=== PATIENT | female | born 1975 | race Caucasian/White ===

== ENCOUNTER 2019-12-02 12:36 | Outpatient (CLI) | payer MEDICARE, MEDICAID, SELFPAY ==
--- NOTE | ~2019-12-02 | US_ITS ---
EXAMINATION: US FNA w image guidance DATE: 12/02/2019 13:40 INDICATION: Nontoxic single thyroid nodule TECHNIQUE: A time-out was performed to verify the patient's name, date of , and procedure to be performed . The procedure and its benefits and risks were discussed with the patient. Risks specifically discus sed included bleeding and infection. The patient understood the risks and agreed to proceed. The neck was prepped and draped in the usual sterile manner. 3 mL 1% lidocaine was used for local anesthesia . 6 passes were made with a 25G needle into the lesion. Appropriate needle location was documented with continuous sonographic guidance. The specimens were passed to the senior cytotechnologist in the room. A sterile bandage was applied. There were no immediate complications. FINDINGS: Grayscale ultrasound images demonstrate 2 predominantly solid isoechoic nodules in the inferior right thyroid, the larger and more cephalad is wider than tall measuring 1.7 x 1.4 x 0.9 cm with a couple punctate intrarenal echogenic foci (TI-RADS 4, moderately suspicious , FNA if >=1.5 cm, annual follow up is >1 cm). The smaller and more caudal is a 1.4 x 1.0 x 1.1 cm solid than wide nodule without echo genic foci, also TI RADS 4. Finally there is a small solid hypoechoic nodule measuring 3 mm in the le ft thyroid. The the larger and more cephalad nodule in the right thyroid was selected for biopsy. Sub sequent images demonstrate the biopsy needle advanced into the nodule. IMPRESSION: 1. Successful ultrasound-guided fine needle aspiration of the largest 1.7 cm TI RADS 4 nodule in the right thyroid. Reviewed, dictated and finalized at location A. IMPRESSION: 1. Successful ultrasound-guided fine needle aspiration of the largest 1.7 cm T I RADS 4 nodule in the right thyroid.
== END 2019-12-02 12:37 | disposition home or self-care (01) ==
LOC: ANHIMG 12:42
PROVIDERS: Visit Provider Otolaryngology
DX: E04.2 Nontoxic multinodular goiter (principal)
CPT/HCPCS: 10005; 88108; 88173; 88305

== ENCOUNTER 2021-10-09 22:39 | Emergency (ER) | payer MEDICARE, MEDICAID, SELFPAY ==
--- NOTE | ~2021-10-09 | XR_ITS ---
EXAMINATION: XR knee LT 3V EXAM DATE: 10/09/2021 23:29 INDICATION: Initial encounter following injury, with pain of the left knee. TECHNIQUE: Three projections of the left knee. There is no prior study for comparison. FINDINGS: No evidence osteochondral defect or joint body in the left knee joint. There are no acute fractures or dislocations identified. There is no subcutaneous gas. There is small joint effusion. There are no radiopaque foreign bodies. IMPRESSION: No acute osseous findings. Reviewed, dictated and finalized at location A. NER IMPRESSION: No acute osseous findings.
[2021-10-09 22:42] VITALS: BP 125/80; PULSE 60; RESP 20; TEMP 37; O2SAT 100
--- NOTE | 2021-10-09 23:25 | ED.LOWEXIN ---
HPI - Extremity Injury (Lower) General Chief Complaint: Extremity Injury, Lower Stated Complaint: left knee pain Time Seen by Provider: 10/09/21 23:04 History of Present Illness HPI Narrative: 46-year-old female presents emergency room status post fall. Patient states that she twisted her left knee while trying to clean up mild off of her driveway. Patient states that she was not ambulatory following the incident. Patient does have a recent history of traumatic injury to the knee. No history of surgical repair. Pain is worse with movement and ambulation. Related Data Home Medications Medication Instructions Recorded Confirmed estradiol 1 mg tablet 1 mg PO DAILY 11/17/19 hydrocodone 10 mg-acetaminophen 1 tablet PO Q8H PRN 11/17/19 325 mg tablet pregabalin 100 mg capsule 100 mg PO BID 11/17/19 Allergies Allergy/AdvReac Type Severity Reaction Status Date / Time ciprofloxacin AdvReac Severe KIDNEY Verified 10/09/21 22:54 FAILURE Review of Systems Review of Systems: CONSTITUTIONAL: Denies fever, chills, or sweats. EYES: Denies visual changes, redness, or discharge. ENT: Denies rhinorrhea, congestion, sore throat, or otalgia. CARDIOVASCULAR: Denies chest pain, palpitations, or edema. RESPIRATORY: Denies cough or dyspnea. GASTROINTESTINAL: Denies abdominal pain, nausea, vomiting, or diarrhea. GENITOURINARY: Denies dysuria or hematuria. SKIN: Denies rash or itching. MUSCULOSKELETAL: Reports right knee pain NEUROLOGIC: Denies headache, numbness, dizziness, or weakness. PSYCHIATRIC: Denies anxiety or depression. PMFSH Past Medical History Medical History Chronic back pain On usp drug therapy Swelling of lymph node Surgical History Surgical History History of partial hysterectomy History of tonsillectomy and adenoidectomy Hx of carpal tunnel repair Status post repair of arteriovenous fistula Family History Family History Mother Diabetes mellitus Sibling Thyroid cancer Grandparent Diabetes mellitus Grandparent Cancer Exam Narrative: GENERAL: Well-appearing, well-nourished, and in no acute distress. HEAD: Normocephalic, atraumatic. EYES: PERRLA and EOMI. ENT: Nares clear, no rhinorrhea or epistaxis. Mucous membranes moist. Oropharynx without tonsillar hypertrophy exudate or other lesions. Bilateral TMs pearly nicholson nonbulging NECK: Supple. No adenopathy or masses. No carotid bruits or JVD CHEST: Clear to auscultation. No respiratory distress. No wheezes rales or rhonchi HEART: Regular rate and rhythm. No murmur heard. Normal peripheral pulses. ABDOMEN: Soft, nontender, nondistended, normal active bowel sounds. EXTREMITIES: Right knee: medial and lateral patellar +TTP; +STS, pain valgus and varus pressure; Negative anterior/posterior drawer tests; distal pulses present SKIN: Warm, dry, no rash. NEURO: No focal deficits. Alert and oriented x3. PSYCH: Normal mood and affect. Course Course Emergency Course: Plain films of the left knee demonstrated no acute fracture. Vital Signs Vital signs: Vital Signs Temperature 37.0 C 10/09/21 22:42 Pulse Rate 60 10/09/21 22:42 Respiratory Rate 20 10/09/21 22:42 Blood Pressure 125/80 10/09/21 22:42 Pulse Oximetry 100 10/09/21 22:42 Temperature 37.0 C 10/09/21 22:42 Pulse Rate 60 10/09/21 22:42 Respiratory Rate 20 10/09/21 22:42 Blood Pressure 125/80 10/09/21 22:42 Pulse Oximetry 100 10/09/21 22:42 MDM - Extremity Injury (Lower) MDM Narrative Medical decision making narrative: 46-year-old female presented to the emergency room status post fall, injuring her left knee, patient states the mechanism of injury was a twist. Imaging demonstrated no acute abnormalities. Suspect a possible ligament injury versus meniscus injury. Medical Records Att
[2021-10-10 00:28] VITALS: BP 132/78; PULSE 65; RESP 18; TEMP 36.8; O2SAT 99
== END 2021-10-10 00:28 | disposition home or self-care (01) ==
PROVIDERS: Emergency Provider Nurse Practitioner Family; PCP Nurse Practitioner Family
DX: M23.92 Unspecified internal derangement of left knee (principal); S89.92XA Unspecified injury of left lower leg, initial encounter; W18.30XA Fall on same level, unspecified, initial encounter; X50.9XXA Other and unspecified overexertion or strenuous movements or postures, initial encounter
CPT/HCPCS: 73562; 99283

== ENCOUNTER 2021-11-25 08:00 | Outpatient (CLI) | payer MEDICARE, MEDICAID, SELFPAY ==
--- NOTE | ~2021-11-25 | MR_ITS ---
EXAMINATION: MR knee LT wo con DATE: 11/25/2021 08:59 INDICATION: Left knee pain TECHNIQUE: Magnetic resonance imaging (MRI) of the left knee was performed without intravenous contra st. Sequences included coronal PD-weighted FSE, coronal PD-weighted FS FSE, sagittal T2-weighted FSE , sagittal PD-weighted FS FSE and axial PD weighted fat saturated FSE. COMPARISON: None. FINDINGS: Medial compartment: Medial meniscus is normal. Articular cartilage is normal. Lateral compartment: Radial tear/avulsion at the posterior root lateral meniscus. Articular cartilage is normal. Patellofemoral compartment: Partial-thickness chondral fissuring involving up to 50% the cartilage thickness at the patellar apic al ridge. Partial-thickness chondral ulceration and fissuring along the inferior aspect of the medial trochlea. Ligaments and tendons: Anterior and posterior cruciate ligaments are normal. The medial collateral ligament and fibular [place] ateral ligament complex are normal. Mild patellar tendinopathy. Quadriceps tendon is normal. The visu alized medial and lateral hamstring tendons as well as the iliotibial band are normal. Fluid: Small joint effusion at the suprapatellar pouch. No loose osteochondral bodies identified. Mild subcu taneous edema without discrete bursal fluid collection. Osseous/other: Normal marrow signal. No fracture or pathologic marrow replacing process. IMPRESSION: 1. Radial tear/avulsion at the posterior root of the lateral meniscus. 2. Mild patellofemoral osteoarthritis with small regions of moderate grade chondromalacia. 3. Small left knee joint effusion. Reviewed, dictated and finalized at location B. IMPRESSION: 1. Radial tear/avulsion at the posterior root of the lateral meniscus. 2. Mild patellofemoral osteoarthritis with small regions of moderate grade jennie dromalacia. 3. Small left knee joint effusion.
== END 2021-11-25 08:01 | disposition home or self-care (01) ==
LOC: ANHIMG 08:02
PROVIDERS: PCP Nurse Practitioner Family; Visit Provider Orthopaedic Surgery
DX: M17.12 Unilateral primary osteoarthritis, left knee (principal); M25.462 Effusion, left knee; M94.262 Chondromalacia, left knee
CPT/HCPCS: 73721

== ENCOUNTER 2022-09-29 10:33 | Emergency (ER) | payer MEDICARE, MEDICAID, SELFPAY ==
--- NOTE | ~2022-09-29 | CT_ITS ---
EXAMINATION: CT abdomen pelvis w con INDICATION: Left lower quadrant pain, constipation TECHNIQUE: Computed tomographic images of the abdomen and pelvis were obtained after the administrati on of 100 cc of Omnipaque 350 intravenous contrast. The dose-length product (DLP) was 1209.37 mGy-cm. Automated exposure control and iterative reconstruction technique were employed. COMPARISON: None available FINDINGS: Minimal dependent atelectasis is present in the lung bases. The heart size is normal. The g allbladder is surgically absent. There is mild enlargement of the common bile duct and central intrah epatic ducts which is likely due to post cholecystectomy state. The liver is diffusely low in attenua tion when compared with the spleen, consistent with hepatic steatosis. The spleen, pancreas, and righ t adrenal gland are normal. There is a 1.4 cm soft tissue density mass of the left adrenal gland. The kidneys are unremarkable. No pathologically enlarged abdominal or pelvic lymph nodes are identified. No free intraperitoneal gas or evidence of bowel obstruction. The appendix is normal. There is a fat -containing umbilical hernia. Colonic diverticulosis is present without evidence of diverticulitis. A moderate volume of colonic stool is present. There are bilateral L5 pars defects with grade 1 melvina listhesis of L5 on S1. IMPRESSION: 1. Moderate volume of colonic stool. 2. Probably benign left adrenal mass. Consider follow-up adrenal CT in 12 months. 3. Diffuse hepatic steatosis. Reviewed, dictated and finalized at location B. NOLOGY OFFICER IMPRESSION: 1. Moderate volume of colonic stool. 2. Probably benign left adrenal mass. Consider follow-up adrenal CT in 12 month s. 3. Diffuse hepatic steatosis.
[2022-09-29 11:22] VITALS: BP 113/77; PULSE 51; RESP 14; TEMP 36.9; O2SAT 100
[2022-09-29 11:26] LABS: Basophils Absolute Auto 0.1 K/mm3 (0.0-0.1); Basophils Percent Auto 1.3 % (0.2-1.2); Eosinophils Absolute Auto 0.4 K/mm3 (0-0.3); Eosinophils Percent Auto 8.1 % (0-4.4); Hematocrit 41.3 % (37.0-47.0); Hemoglobin 13.2 g/dL (12.0-15.0); Immature Granulocyte Absolute 0.02 K/mm3 (0.00-0.031); Immature Granulocyte Percent A 0.4 % (0-0.5); Immature Platelet Fraction Pct 8.8 % (0.9-11.2); Lymphocytes Absolute Auto 1.34 K/mm3 (0.9-3.2); Lymphocytes Percent Auto 29.3 % (18.3-44.2); Mean Corpuscular Hemoglobin 28.6 pg (26-34); Mean Corpuscular Volume 89.4 fl (80-100); Monocytes Absolute Auto 0.3 K/mm3 (0.1-0.6); Monocytes Percent Auto 6.3 % (2.6-8.5); Neutrophils Absolute Auto 2.5 K/mm3 (1.3-6.7); Neutrophils Percent Auto 54.6 % (45.5-73.1); Platelet Count Result 144 k/mm3 (150-375); Red Blood Count 4.62 M/mm3 (4.2-5.4); Red Cell Distribution Width 13.9 % (11.5-14.5); White Blood Count 4.6 K/mm3 (4.5-10.0)
[2022-09-29 11:38] LABS: Alanine Aminotransferase 15 U/L (6-35); Albumin Level 3.2 g/dL (3.5-5.1); Alkaline Phosphatase 55 U/L (38-126); Anion Gap 2 mmol/L (8-16); Aspartate Amino Transferase 26 U/L (14-36); Bilirubin,Total 0.4 mg/dL (0.2-1.3); Blood Urea Nitrogen 9 mg/dL (7-17); Calcium 8.2 mg/dL (8.4-10.2); Carbon Dioxide 31 mmol/L (22-30); Chloride 106 mmol/L (98-107); Estimated CRCL calculation 95 ml/min; Estimated Glomerular Filt Rate > 60; Glucose 87 mg/dL (65-110); Lipase 43 U/L (23-300); Potassium 3.8 mmol/L (3.4-5.0); Sodium 139 mmol/L (137-145)
[2022-09-29 12:40] LABS: Appearance Urine Clear (Clear); Bilirubin Urine Negative (Negative); Blood Urine Negative (Negative); Color Urine Yellow (Yellow); Glucose Urine UA Negative (Negative); Ketones Urine Negative (Negative); Leukocyte Esterase Ur Negative LEU/UL (Negative); Nitrate Urine Negative (Negative); Protein Urine Negative (Negative); Specific Grav Ur 1.015 (1.001-1.035); Urobilinogen Urine 0.2 mg/dL (<2.0)
--- NOTE | 2022-09-29 12:41 | ED.ABDPAIN ---
HPI - Abdominal Pain General Chief Complaint: Abdominal Pain Stated Complaint: abdominal pain Time Seen by Provider: 09/29/22 11:27 Source: patient Mode of arrival: ambulatory Limitations: no limitations History of Present Illness HPI narrative: Patient is a 47-year-old female who presents to the ED with report of left lower quadrant abdominal pain. Patient reports she has had issues with constipation over the last 1 year. She is on chronic opioids due to chronic back pain. She has been using enemas, suppositories, laxatives intermittently and recently has been using Linzess, which has caused some diarrhea. Patient states her last passage of stool was yesterday. She has had intermittent pain in her left-sided abdomen, which has become worse over the last few days. She is concerned she may be obstructed. Patient denies previous history of bowel obstruction. She does have history of hysterectomy and cholecystectomy. She endorses some nausea, but denies vomiting. Denies fever, urinary symptoms, rectal bleeding. Related Data Home Medications Medication Instructions Recorded Confirmed estradiol 1 mg tablet 1 mg PO DAILY 11/17/19 12/08/21 hydrocodone 10 mg-acetaminophen 1 tablet PO Q8H PRN 11/17/19 12/08/21 325 mg tablet ([place]) pregabalin 100 mg capsule (Lyrica) 100 mg PO BID 11/17/19 12/08/21 Allergies Allergy/AdvReac Type Severity Reaction Status Date / Time ciprofloxacin AdvReac Severe KIDNEY Verified 12/08/21 08:56 FAILURE Review of Systems Review of Systems: CONSTITUTIONAL: Denies fever, chills, or sweats. CARDIOVASCULAR: Denies chest pain. RESPIRATORY: Denies dyspnea. GASTROINTESTINAL: See HPI. GENITOURINARY: Denies dysuria or hematuria. All systems reviewed & are unremarkable except as noted in HPI and below PMFSH Past Medical History Medical History Anxiety Chronic back pain Depression History of postoperative complication of surgical procedure Left knee pain On portrait studio photographer drug therapy Swelling of lymph node Urinary frequency Surgical History Surgical History History of partial hysterectomy History of tonsillectomy and adenoidectomy Hx of carpal tunnel repair Status post repair of arteriovenous fistula Family History Family History Mother Diabetes mellitus Sibling Thyroid cancer Grandparent Diabetes mellitus Grandparent Cancer Social History Social History Smoking status: Never smoker Substance use: never Living arrangements: with family Gender identity (if verbalized by the patient): Female Exam Narrative: GENERAL: Well appearing, obese, non-toxic, in no acute distress. HEAD: Normocephalic, atraumatic. NECK: Supple. No adenopathy, no masses. RESPIRATORY: Airway patent, respirations nonlabored. Clear to auscultation bilaterally, no rales, rhonchi, wheezing. CARDIOVASCULAR: Regular rate and rhythm without murmurs, rubs, or gallops. Peripheral pulses 2+ and equal bilaterally. ABDOMINAL: Soft, minimal tenderness throughout left lower abdomen/suprapubic region, nondistended, no hepatosplenomegaly. Normoactive BS. MUSCULOSKELETAL: Moves all extremities. Strength/ROM intact without gross deformities. SKIN: Warm, dry, normal color. No rashes. NEURO: A&O X3. Speech clear. Cranial nerves II-XII grossly intact. Steady gait. No ataxic movements. PSYCHIATRIC: Appropriate mood and affect. Normal interaction. Course Vital Signs Vital signs: Vital Signs Temperature 98.5 F 09/29/22 11:22 Pulse Rate 51 L 09/29/22 11:22 Respiratory Rate 14 09/29/22 11:22 Blood Pressure 113/77 09/29/22 11:22 Pulse Oximetry 100 09/29/22 11:22 Oxygen Delivery Room Air 09/29/22 11:22 Temperature 98.5 F 09/29/22 11:22 Pulse Rate 51 L
[2022-09-29 12:53] LABS: Add Urine Microscopic? NO
== END 2022-09-29 14:52 | disposition home or self-care (01) ==
PROVIDERS: Emergency Medicine; Emergency Provider Physician Assistant; PCP Nurse Practitioner Family
DX: K59.00 Constipation, unspecified (principal); E27.8 Other specified disorders of adrenal gland; F11.20 Opioid dependence, uncomplicated; G89.29 Other chronic pain; M54.9 Dorsalgia, unspecified; Z90.710 Acquired absence of both cervix and uterus; K76.0 Fatty (change of) liver, not elsewhere classified
CPT/HCPCS: 36415; 74177; 80053; 81003; 81025; 83690; 85025; 85055; 99284; Q9967

== ENCOUNTER 2022-12-18 14:44 | Observation (INO) | payer MEDICARE, MEDICAID, SELFPAY ==
[2022-12-18] VITALS (8 sets, daily range): BP systolic 114–154; BP diastolic 50–95; PULSE 52–64; RESP 14–19; TEMP 36.4–36.7; O2SAT 98–100
--- NOTE | ~2022-12-18 | CT_ITS ---
EXAMINATION: CTA chest PE protocol DATE: 12/19/2022 12:17 INDICATION: Chest pain. TECHNIQUE: Computed tomography angiography (CTA) of the chest was performed with 100 mL Omnipaque-350 intravenous contrast timed to evaluate the pulmonary arteries. Coronal maximum intensity projection 3D-reconstructions were created by the technologist. Automated exposure control and iterative reconst ruction technique were employed. The dose-length product was 463.49 mGy-cm. COMPARISON: CT abdomen and pelvis 09/29/2022 FINDINGS: There is mild atelectasis bilaterally. A calcified right lung nodule and calcified right hi lar and mediastinal lymph nodes are consistent with old granulomatous disease. No pleural effusion. T he heart size is normal. No pericardial effusion. There is a small sliding hiatal hernia. There is no pulmonary embolus. There are changes of cholecystectomy. There is a 15 mm mass in left adrenal gland measuring low attenuation, consistent with an adenoma. There is mild thoracic spondylosis. There is mild chronic anterior wedging of multiple vertebral bodies. IMPRESSION: 1. No pulmonary embolus. 2. Small sliding hiatal hernia. Reviewed, dictated and finalized at location A.
--- NOTE | ~2022-12-18 | US_ITS ---
EXAMINATION: US venous doppler [facility] DATE: 12/19/2022 15:56 INDICATION: Edema . TECHNIQUE: Grayscale images without and with compression and Doppler images of the bilateral lower ex tremity veins were obtained. COMPARISON: None FINDINGS: The right common femoral vein, profunda (deep) femoral vein, femoral vein, popliteal vein, peroneal v ein, posterior tibial veins, gastrocnemius vein, and greater saphenous vein are patent. The left common femoral vein, profunda (deep) femoral vein, femoral vein, popliteal vein, peroneal v ein, posterior tibial veins, gastrocnemius vein, and greater saphenous vein are patent. IMPRESSION: 1. Patent bilateral lower extremity veins. No evidence of deep venous thrombosis. Reviewed, dictated and finalized at location K. IMPRESSION: 1. Patent bilateral lower extremity veins. No evidence of deep venous thrombos is.
--- NOTE | ~2022-12-18 | NM_ITS ---
EXAMINATION: NM torito stress w perfusion DATE: 12/19/2022 13:49 INDICATION: Chest pain TECHNIQUE: Rest images were obtained following intravenous administration of 11 mCi Tc99m tetrofosmin (Myoview). The patient was infused intravenously with Lexiscan (Regadenoson). Then, 34.6 mCi Tc99m t etrofosmin (Myoview) was administered intravenously, and stress images were obtained. Data was recons tructed into short axis and horizontal and vertical long axis SPECT images. Gated SPECT images were a lso obtained. COMPARISON: None. FINDINGS: There is no definite reversible or fixed perfusion abnormality to suggest ischemia or infar ction. There is normal left ventricular chamber size, wall motion and ejection fraction. Left ventr icular ejection fraction measures 66%. IMPRESSION: 1. Normal myocardial perfusion at rest and during stress. 2. Left ventricular ejection fraction measuring 66%. Reviewed, dictated and finalized at location L.
--- NOTE | ~2022-12-18 | XR_ITS ---
EXAMINATION: XR chest 2V Exam Date/Time: 12/18/2022 15:05 CDT HISTORY: chest pain Comparison: None available. RESULT: Lines, tubes, and devices: None. Lungs and pleura: Clear. Cardiomediastinal silhouette: Unremarkable. Other: No acute osseous or upper abdominal finding. IMPRESSION: No acute cardiopulmonary process. Reviewed, dictated and finalized at location K.
--- NOTE | 2022-12-18 14:45 | ECG_ITS ---
Measurements Intervals Eros Rate: 64 P: 29 WI: 157 QRS: 17 QRSD: 102 T: -11 QT: 406 QTc: 420 Interpretive Statements SINUS RHYTHM LEFT VENTRICULAR HYPERTROPHY MINIMAL Q WAVES- HIGH LATERAL LEADS ST-T WAVE ABNORMALITY IN ANTEROLAT/INF LEADS- CONSIDER ISCHEMIA BASELINE ARTIFACT- I, II, III, AVR, AVL, AVF, V1-V6 ABNORMAL ECG NO PREVIOUS ECG AVAILABLE FOR COMPARISON Electronically Signed On 12-18-2022 14:55:03 CDT by Leonidas Stiles D.O.
[2022-12-18 15:01] LABS: Basophils Absolute Auto 0.1 K/mm3 (0.0-0.1); Basophils Percent Auto 1.1 % (0.2-1.2); Eosinophils Absolute Auto 0.3 K/mm3 (0-0.3); Eosinophils Percent Auto 5.1 % (0-4.4); Hematocrit 43.6 % (37.0-47.0); Hemoglobin 13.7 g/dL (12.0-15.0); Immature Granulocyte Absolute 0.02 K/mm3 (0.00-0.031); Immature Granulocyte Percent A 0.4 % (0-0.5); Lymphocytes Percent Auto 31.1 % (18.3-44.2); Mean Corpuscular HGB Conc 31.4 g/dl (32-36); Mean Corpuscular Hemoglobin 28.1 pg (26-34); Mean Corpuscular Volume 89.3 fl (80-100); Monocytes Absolute Auto 0.3 K/mm3 (0.1-0.6); Monocytes Percent Auto 5.7 % (2.6-8.5); Neutrophils Absolute Auto 3.1 K/mm3 (1.3-6.7); Neutrophils Percent Auto 56.6 % (45.5-73.1); Platelet Count Result 187 k/mm3 (150-375); Red Blood Count 4.88 M/mm3 (4.2-5.4); Red Cell Distribution Width 13.6 % (11.5-14.5); White Blood Count 5.5 K/mm3 (4.5-10.0)
[2022-12-18 15:10] LABS: INR 0.9; Prothrombin Time 12.7 Seconds (11.1-14.7)
[2022-12-18 15:11] LABS: Partial Thromboplastin Time 24.4 SECONDS (22.3-36.8)
[2022-12-18 15:14] LABS: Alanine Aminotransferase 18 U/L (6-35); Albumin Level 3.9 g/dL (3.5-5.1); Alkaline Phosphatase 57 U/L (38-126); Anion Gap 5 mmol/L (8-16); Aspartate Amino Transferase 26 U/L (14-36); Bilirubin,Total 0.5 mg/dL (0.2-1.3); Blood Urea Nitrogen 6 mg/dL (7-17); Calcium 9.3 mg/dL (8.4-10.2); Carbon Dioxide 36 mmol/L (22-30); Chloride 95 mmol/L (98-107); Estimated CRCL calculation 84 ml/min; Estimated Glomerular Filt Rate > 60; Glucose 83 mg/dL (65-110); Lipase 82 U/L (23-300); Potassium 2.6 mmol/L (3.4-5.0); Sodium 136 mmol/L (137-145)
[2022-12-18 15:22] LABS: Troponin I < 0.012 ng/mL (0.000-0.034)
--- NOTE | 2022-12-18 16:39 | ED.CHESTPAIN ---
HPI - Chest Pain General Chief Complaint: Chest Pain Stated Complaint: chest pain Time Seen by Provider: 12/18/22 16:10 Source: patient and RN notes reviewed Mode of arrival: ambulatory Limitations: no limitations History of Present Illness HPI narrative: This is a 47 year old female with history of chronic pain who presents for evaluation of chest pain. Patient states she developed sudden onset of midsternal chest pain 2 hours ago while she was eating. She states she feels like she can not breath and her pain is worse with breathing. She also reports she had right shoulder pain. She states she feels off all over, and her mother reports patient is feeling numb all over. She denies history of PE, heart disease. Her mother gave patient aspirin 325 mg at onse of her pain . She states patient waxes and wanes. She rates her pain as 5/10. Patient denies history of chest pain or shortness of breath with exertion prior to this episode. Related Data Home Medications Medication Instructions Recorded Confirmed hydrocodone 10 mg-acetaminophen 1 tablet PO Q8H PRN Moderate Pain 11/17/19 12/18/22 325 mg tablet ([place]) (Scale Score 5-6) pregabalin 100 mg capsule (Lyrica) 100 mg PO BID 11/17/19 12/18/22 ergocalciferol (vitamin D2) 1,250 1,250 mcg PO WEEKLY 12/18/22 12/18/22 mcg (50,000 unit) capsule hydrochlorothiazide 25 mg tablet 25 mg PO DAILY 12/18/22 12/18/22 methocarbamol 750 mg tablet 750 mg PO BID PRN Spasms 12/18/22 12/18/22 topiramate 50 mg tablet 50 mg PO DAILY 12/18/22 12/18/22 Allergies Allergy/AdvReac Type Severity Reaction Status Date / Time ciprofloxacin AdvReac Severe KIDNEY Verified 12/08/21 08:56 FAILURE Review of Systems Review of Systems: All systems reviewed & are unremarkable except as noted in HPI and below Constitutional: Constitutional: Denies weakness Cardiovascular: Cardiovascular: Reports chest pain, Denies syncope, Denies rapid heart rate, Denies irregular heart rhythm, Denies leg edema, Reports radiating jaw, neck or arm pain and Reports dyspnea Respiratory: Respiratory: Denies chest congestion, Denies hemoptysis, Denies excessive phlegm production and Reports dyspnea Gastrointestinal: Gastrointestinal: Denies abdominal pain, Denies hematochezia, Denies diarrhea, Reports nausea and Denies vomiting Genitourinary: Genitourinary: Denies hematuria and Denies dysuria Musculoskeletal: Musculoskeletal: Denies joint swelling, Denies loss of height and Denies muscle weakness Neurologic: Denies syncope, Denies focal weakness, Reports numbness and Denies weakness PMFSH Past Medical History Medical History Anxiety Chest pain Chronic back pain Depression History of postoperative complication of surgical procedure Knee injury Left knee pain On jail drug therapy Rectal vaginal fistula Repair Swelling of lymph node Urinary frequency Surgical History Surgical History H/O: hysterectomy History of tonsillectomy and adenoidectomy Hx of carpal tunnel repair Bilateral release S/P laparotomy Family History Family History Mother Diabetes mellitus Sibling Thyroid cancer Grandparent Diabetes mellitus Grandparent Cancer Social History Social History Social History: The patient has 3 children. Disabled. She lives with her significant other. Code status full code Smoking status: Never smoker Alcohol intake: never Substance use: never Lack of Transportation: No Lack of Food: Never True Current Housing: I Have Housing Concerned About Future Housing: No Difficulty Paying Gas/Electric Bills: No Difficulty Paying for Meds: No Currently Unemployed: No Education: Trade/Vocational Certificate Difficulty w/ Childcare or Family Care: No Living arrangement
[2022-12-18] MEDS: KETOROLAC 15 MG/ML VIAL (*BKC) IV PUSH (16:56)
[2022-12-18] MEDS: POTASSIUM CHLORIDE 20 MEQ TABLET 40 MEQ PO (16:56)
[2022-12-18] MEDS: LACTATED RINGERS 1,000 ML 999 ML IV CONT (16:57)
[2022-12-18 16:59] LABS: Magnesium 1.9 mg/dL (1.6-2.3)
[2022-12-18 17:03] LABS: D Dimer 0.32 ug/mL (<0.48)
[2022-12-18 17:17] LABS: Alveolar/Arterial O2 Gradient 28.9 mmHg; Base Excess ABG 5.7 mEq/l (+/-2.0); Fractional Inspired Oxygen 21 %; Methemoglobin ABG 0.3 %THb (0-1.5); Oxygen Content ABG 17.9 %vol (16.0-22.0); PCO2 ABG 42.3 mmHg (35.0-45.0); PO2 ABG 70.2 mmHg (80.0-100.0); PO2 FiO2 Ratio Arterial Blood 3.34 %; Reduced Hemoglobin 5.7 %THb (0-5.0); Total Hemoglobin 13.7 g/dL (12.0-18.0); pH ABG 7.469 (7.350-7.450)
[2022-12-18 17:18] LABS: Device ROOM AIR; Modified Allen's Test Pass; Site Drawn LEFT RADIAL
[2022-12-18 18:19] LABS: Troponin I < 0.012 ng/mL (0.000-0.034)
--- NOTE | 2022-12-18 19:45 | PC.NURSE ---
Spoke with Sister of pt at this time and gave update on status at this time and only abnormal lab to note at this time was low potassium. Pt gave consent for family update prior to discussion.
--- NOTE | 2022-12-18 21:39 | PM.IMHP ---
H&P: HPI History of Present Illness Date/Time: 12/18/22 21:39 Chief Complaint: Chest pain Narrative: This is a 47-year-old female patient who has a history of chronic back pain. The patient stated recently she developed some edema to her lower extremities and her primary care doctor started her on a diuretic. The patient came to the emergency room to be evaluated for sudden onset of midsternal chest pain 2 hours prior to coming to the emergency room while eating. She stated that the pain went down her left arm as well. She felt like she could not take a deep breath that was worse with breathing. She denies any history of any heart disease or PE. Her mother gave her 325 mg of aspirin 1 time at home. The patient stated that her pain was 5/10. The patient stated that she does go to a pain clinic and gets injections to her back. Her potassium was initially 2.6 and was replaced with oral potassium and is now 2.8. She has not yet had her potassium infusion. All 3 troponins have been nonreactive. The patient was given potassium, Toradol, lactated Ringer's an aspirin in the emergency room. EKG was read as sinus rhythm. Left ventricular hypertrophy. The patient is being admitted to observation status on the date of service of 12/18/2022. Review of Systems Review of Systems: All systems reviewed & are unremarkable except as noted in HPI and below Constitutional: Constitutional: Reports as per HPI and Reports no additional constitutional complaints Eyes: Eyes: Reports as per HPI and Reports no additional eye complaints ENT: Reports system reviewed and no additional complaints, except as documented and Reports Normal hearing present Cardiovascular: Cardiovascular: Reports no additional cardiovascular complaints Respiratory: Respiratory: Reports no additional respiratory complaints and Reports no additional respiratory complaints Gastrointestinal: Gastrointestinal: Reports as per HPI and Reports no additional gastrointestinal complaints Musculoskeletal: Musculoskeletal: Reports no additional musculoskeletal complaints Integumentary/Breasts: Skin/Breast: Reports system reviewed and no additional complaints, except as docu and Reports as per HPI Neurologic: Reports system reviewed and no additional complaints, except as documented, Reports as per HPI and Reports Normal hearing present Psychiatric: Psychiatric: Reports no additional psychiatric complaints and Reports as per HPI Endocrine: Endocrine: Reports no additional endocrine complaints Hematologic/Lymphatic: Hematologic/Lymphatic: Reports no additional hematologic/lymphatic complaints Allergic/Immunologic: Allergic/Immunologic: Reports no additional allergic/immunologic complaints [facility] Past Medical History Medical History (Updated 12/18/22 @ 23:32 by Summer De La Rosa NP) Anxiety Chest pain Chronic back pain Depression History of postoperative complication of surgical procedure Knee injury Left knee pain On extermination supervisor drug therapy Rectal vaginal fistula Repair Swelling of lymph node Urinary frequency Surgical History Surgical History (Updated 12/18/22 @ 23:32 by Summer De La Rosa NP) H/O: hysterectomy History of tonsillectomy and adenoidectomy Hx of carpal tunnel repair Bilateral release S/P laparotomy Family History Family History Mother Diabetes mellitus Sibling Thyroid cancer Grandparent Diabetes mellitus Grandparent Cancer Social History Social History (Updated 12/18/22 @ 23:27 by Summer De La Rosa NP) Social History: The patient has 3 children. Disabled. She lives with her significant other. Code status full code Smoking status: Never smoker Alcohol intake: never Substance use: never Lack of Transportation: No Lack of Food: Never True Current Housing: I Have Housing Concerned About Future Housing: No Difficulty Paying Gas/Electric Bills: No Difficulty Paying
[2022-12-18] MEDS: POTASSIUM CHLORIDE INJ 40 MEQ in SODIUM CHLORIDE 0.9% IV 500 ML 130 MEQ IVPB (21:54)
[2022-12-18 22:19] LABS: Anion Gap 3 mmol/L (8-16); Blood Urea Nitrogen 7 mg/dL (7-17); Calcium 8.5 mg/dL (8.4-10.2); Carbon Dioxide 35 mmol/L (22-30); Chloride 99 mmol/L (98-107); Estimated CRCL calculation 75 ml/min; Estimated Glomerular Filt Rate > 60; Glucose 83 mg/dL (65-110); Potassium 2.8 mmol/L (3.4-5.0); Sodium 137 mmol/L (137-145)
[2022-12-18 22:28] LABS: Troponin I < 0.012 ng/mL (0.000-0.034)
[2022-12-19] VITALS (8 sets, daily range): BP systolic 95–101; BP diastolic 42–53; PULSE 47–59; RESP 16–20; TEMP 36–36.4; O2SAT 97–99
--- NOTE | 2022-12-19 | ECHO_ITS ---
Patient Info Name: Kirsten Hensley Age: 47 years : 1975 Gender: Female Ht: 63 in Wt: 214 lbs BSA: 2.13 m2 HR: 52 bpm BP: 95 / 50 mmHg Heart Rhythm: Sinus Rhythm Technical Quality: Fair Exam Date: 12/19/2022 7:35 AM Exam Location: [facility] Card Pulmonary Patient Status: Inpatient Admit Date: 12/18/2022 Staff Ordering Physician: Summer De La Rosa NP Export Agent: Yee Saldana RDCS Attending Provider: Jose Walden MD Referring Physician: Rj LECHUGA; Exam Type: CA echo doppler color flow Study Info Indications - Edema to lower extremities and chest pain Complete two-dimensional, color flow and Doppler transthoracic echocardiogram is performed. Summary 1. Complete two-dimensional, color flow and Doppler transthoracic echocardiogram is performed. 2. Left ventricular chamber dimension is normal. 3. Left ventricular systolic function is normal, estimated at 60-65%. 4. Right ventricular systolic function is normal. 5. There is mild tricuspid valve regurgitation. Left Ventricle Left ventricular chamber dimension is normal. Left ventricular systolic function is normal, estimated at 60-65%. There is no increased left ventricular wall thickness. Right Ventricle Right ventricular chamber dimension is normal. Right ventricular systolic function is normal. Left Atria Left atrial chamber dimension is normal. Right Atria Right atrial chamber dimension is normal. Atrial Septum Intact interatrial septum visualized by color flow imaging. Aortic Valve The aortic valve is probable trileaflet. There is no aortic valve stenosis. There is no aortic valve regurgitation. Pulmonic Valve The pulmonic valve is not well visualized. There is trace pulmonic regurgitation. Mitral Valve There is no mitral valve stenosis. There is trace mitral valve regurgitation. Tricuspid Valve There is mild tricuspid valve regurgitation. Pericardium/Pleural The pericardium appears epicardial fat pad. There is no pericardial effusion. Inferior Vena Cava Normal inferior vena cava with >50% collapse upon inspiration consistent with normal right atrial pressure, 3 mmHg. Aorta The aortic root size at the sinus of Valsalva is normal. Left Ventricular Outflow Tract Name Value Normal LVOT 2D LVOT Diameter 2.1 cm LVOT Doppler LVOT Peak Gradient 4 mmHg LVOT Mean Gradient 2 mmHg LVOT VTI 21 cm LVOT VTI/AV VTI Ratio 0.7 LVOT Stroke Volume 73 ml LVOT CO 3.5 l/min LVOT CI 1.7 l/min/m2 Pulmonic Valve Name Value Normal RVOT Doppler RVOT Peak Gradient 2 mmHg PV Doppler PV Peak Gradient 4 mmHg Mitral Valve
--- NOTE | 2022-12-19 | EST_ITS ---
Patient Info Name: Kirsten Hensley Age: 47 years : 1975 Gender: Female Ht: 63 in Wt: 214 lbs BSA: 2.13 m2 HR: 47 bpm BP: 92 / 74 mmHg Heart Rhythm: Sinus Rhythm Exam Date: 12/19/2022 12:41 PM Exam Location: [facility], [place] Stress Patient Status: Outpatient Admit Date: 12/18/2022 Staff Ordering Physician: Summer De La Rosa NP Attending Provider: Jose Walden MD Exercise Technologist: Guerline Franks CT Nurse: AUBREY AGUERO Exam Type: CA stress test treadmill w NM Study Info Indications R07.89 - Other chest pain A regadenoson stress test was performed. Summary 1. No abnormal ST/T wave changes diagnostic of ischemia with Lexiscan. 2. Please correlate with nuclear medicine images, reported separately. Protocol: Lexiscan Stress ECG Details Stage: REST Duration (min): 1 min : 15 sec HR (bpm): 55 SBP (mmHg): 92 DBP (mmHg): 74 Stage: REST Duration (min): 18 min : 23 sec HR (bpm): 49 SBP (mmHg): 92 DBP (mmHg): 74 Stage: STAGE 1 Duration (min): 0 min : 59 sec HR (bpm): 63 SBP (mmHg): 107 DBP (mmHg): 85 Stage: RECOVERY Duration (min): 1 min : 0 sec HR (bpm): 77 SBP (mmHg): 107 DBP (mmHg): 85 Stage: RECOVERY Duration (min): 2 min : 0 sec HR (bpm): 68 SBP (mmHg): 107 DBP (mmHg): 85 Stage: RECOVERY Duration (min): 3 min : 0 sec HR (bpm): 62 SBP (mmHg): 111 DBP (mmHg): 80 Stage: RECOVERY Duration (min): 3 min : 19 sec HR (bpm): 64 SBP (mmHg): 111 DBP (mmHg): 80 Rest HR: 49 bpm Peak HR: 79 bpm Rest Sys BP: 92 mmHg Peak Sys BP: 111 mmHg Max Pred HR: 173 bpm % Max Pred HR: 46 % Target HR: 147 bpm Max RPP: 8,769 bpm*mmHg Total Time: 1 min : 0 sec Rest Silverman BP: 74 mmHg Peak Silverman BP: 80 mmHg Total Dose: 0.4 mg Resting ECG Sinus bradycardia. Stress ECG Sinus rhythm. No abnormal ST/T wave changes diagnostic of ischemia with Lexiscan. Report Signatures
[2022-12-19] MEDS: PREGABALIN (*CRX) 50 MG CAPSULE 100 MG PO ×2 (01:11→08:51)
--- NOTE | 2022-12-19 01:36 | ADMGEN ---
This patient, Kirsten Hensley, was admitted to IMU Room 202-01 at 2125 on 12/18/22. Patient/family oriented to hospital policies and general routines including ID bracelet, bed and alarms, visiting hours, pain management, procedures, bathroom and other care routines, personal items, smoking policy, room service/diet, and visiting hours. Information on how to activate the Rapid Response Team has been discussed. Patient/Family are encouraged to report perceived risks to care and to ask questions if they do not understand what they are told or what they should do.
[2022-12-19 04:53] LABS: Basophils Percent Auto 0.7 % (0.2-1.2); Eosinophils Absolute Auto 0.3 K/mm3 (0-0.3); Eosinophils Percent Auto 8.3 % (0-4.4); Hematocrit 37.5 % (37.0-47.0); Hemoglobin 11.7 g/dL (12.0-15.0); Immature Granulocyte Absolute 0.01 K/mm3 (0.00-0.031); Immature Granulocyte Percent A 0.2 % (0-0.5); Lymphocytes Absolute Auto 1.36 K/mm3 (0.9-3.2); Lymphocytes Percent Auto 33.3 % (18.3-44.2); Mean Corpuscular HGB Conc 31.2 g/dl (32-36); Mean Corpuscular Hemoglobin 27.9 pg (26-34); Mean Corpuscular Volume 89.5 fl (80-100); Mean Platelet Volume 12.4 fl (7.4-10.4); Monocytes Absolute Auto 0.3 K/mm3 (0.1-0.6); Monocytes Percent Auto 8.1 % (2.6-8.5); Neutrophils Percent Auto 49.4 % (45.5-73.1); Platelet Count Result 155 k/mm3 (150-375); Red Blood Count 4.19 M/mm3 (4.2-5.4); Red Cell Distribution Width 13.6 % (11.5-14.5); White Blood Count 4.1 K/mm3 (4.5-10.0)
[2022-12-19 05:03] LABS: Alanine Aminotransferase 13 U/L (6-35); Albumin Level 2.9 g/dL (3.5-5.1); Alkaline Phosphatase 49 U/L (38-126); Anion Gap 0 mmol/L (8-16); Aspartate Amino Transferase 20 U/L (14-36); Bilirubin,Total 0.4 mg/dL (0.2-1.3); Blood Urea Nitrogen 10 mg/dL (7-17); Calcium 8.2 mg/dL (8.4-10.2); Carbon Dioxide 34 mmol/L (22-30); Chloride 103 mmol/L (98-107); Estimated CRCL calculation 75 ml/min; Estimated Glomerular Filt Rate > 60; Glucose 94 mg/dL (65-110); Magnesium 1.8 mg/dL (1.6-2.3); Sodium 137 mmol/L (137-145)
[2022-12-19 05:09] LABS: Lactic Acid Reflex 0.6 mmol/L (0.7-2.0)
[2022-12-19] MEDS: ENOXAPARIN 40 MG/0.4 ML SYRINGE SUB-Q (08:52)
[2022-12-19] MEDS: PANTOPRAZOLE SOD SESQUIHYDRATE 20 MG TAB PO (08:52)
[2022-12-19] MEDS: TOPIRAMATE 25 MG TABLET 50 MG PO (08:53)
--- NOTE | 2022-12-19 10:48 | PM.CNCAR ---
Assessment and Plan Assessment and plan (1) Chest pain: Code(s): R07.9 - Chest pain, unspecified Status: Acute Assessment and Plan: Atypical chest pain. Troponins negative x 3. EKG with sinus rhythm with LVH. Echo and MPI ordered by primary service, will follow up on results. If negative, no further cardiac evaluation warranted. Patient does have reproducible chest wall pain on examination. Recommend treatment for musculoskeletal chest wall pain as per the primary service. History of Present Illness History of Present Illness Consult date/time: 12/19/22 10:48 Requesting physician: Summer De La Rosa NP Consult reason: chest pain Reason For Visit: Chest Pain, Hypokalemia Narrative: We are consulted for chest pain. This is a 47-year-old female with a history of chronic back pain who presented with chest pain. Patient reports that she has had brief intermittent sharp stabbing substernal chest pain for the past few weeks now that usually last for a few seconds or so. Yesterday, pain felt more severe and lasted for a few hours, therefore, patient presented to the ER. Patient noted to be hypokalemic on admission with potassium of 2.6. Troponins negative x 3. EKG with sinus rhythm, LVH, nonspecific STTW abnormality. MPI and echo already ordered by primary service. Review of Systems Review of Systems: All systems reviewed & are unremarkable except as noted in HPI and below (HPI) [facility]LY [facility] Past Medical History Medical History Anxiety Chest pain Chronic back pain Depression History of postoperative complication of surgical procedure Knee injury Left knee pain On director long term care drug therapy Rectal vaginal fistula Repair Swelling of lymph node Urinary frequency Surgical History Surgical History H/O: hysterectomy History of tonsillectomy and adenoidectomy Hx of carpal tunnel repair Bilateral release S/P laparotomy Family History Family History Mother Diabetes mellitus Sibling Thyroid cancer Grandparent Diabetes mellitus Grandparent Cancer Social History Social History Social History: The patient has 3 children. Disabled. She lives with her significant other. Code status full code Smoking status: Never smoker Alcohol intake: never Substance use: never Lack of Transportation: No Lack of Food: Never True Current Housing: I Have Housing Concerned About Future Housing: No Difficulty Paying Gas/Electric Bills: No Difficulty Paying for Meds: No Currently Unemployed: No Education: Trade/Vocational Certificate Difficulty w/ Childcare or Family Care: No Living arrangements: with family Gender identity (if verbalized by the patient): Female Spiritual care concerns: No Meds Home Medications and Allergies Home Medications Medication Instructions Recorded Confirmed Type hydrocodone 10 mg-acetaminophen 1 tablet PO Q8H PRN Moderate Pain 11/17/19 12/18/22 History 325 mg tablet ([place]) (Scale Score 5-6) pregabalin 100 mg capsule (Lyrica) 100 mg PO BID 11/17/19 12/18/22 History ergocalciferol (vitamin D2) 1,250 1,250 mcg PO WEEKLY 12/18/22 12/18/22 History mcg (50,000 unit) capsule hydrochlorothiazide 25 mg tablet 25 mg PO DAILY 12/18/22 12/18/22 History methocarbamol 750 mg tablet 750 mg PO BID PRN Spasms 12/18/22 12/18/22 History topiramate 50 mg tablet 50 mg PO DAILY 12/18/22 12/18/22 History Allergies Allergy/AdvReac Type Severity Reaction Status Date / Time ciprofloxacin AdvReac Severe KIDNEY Verified 12/08/21 08:56 FAILURE Vital Signs Vital Signs - 24 hr 12/18/22 14:53 12/18/22 16:54 12/18/22 16:50 Temperature 36.7 C Pulse Rate 64 52 L Respiratory Rate 14 19 Blood Pressure 114/95 H 116/72 116/72 Pulse Oximetry 100 98 Oxygen Deli
--- NOTE | 2022-12-19 11:07 | PM.IMPN ---
Progress Note: A&P Assessment and Plan (1) Chest pain: Code(s): R07.9 - Chest pain, unspecified Status: Acute Assessment and Plan: Chest x-ray shows no acute cardiopulmonary process Cardiology has been consult Stress test has been ordered. The patient stated that she thinks that she will be able to walk on a treadmill. An echo has been ordered since she has had new onset of edema. CT pulmonary has been ordered Troponins have been nonreactive x3. (2) Chronic back pain: Code(s): M54.9 - Dorsalgia, unspecified; G89.29 - Other chronic pain Status: Acute Assessment and Plan: Continue with patient's home medications of hydrocodone. Continue with methocarbamol The patient sees pain management outpatient and received injections to her back. Continue with topiramate Continue with pregabalin (3) Hypokalemia: Code(s): E87.6 - Hypokalemia Status: Acute Assessment and Plan: Patient recently was started on hydrochlorothiazide for edema to her feet. This may have caused her hypokalemia. Replace as necessary. Hydrochlorothiazide was placed on hold. Subjective Date/time seen: 12/19/22 11:07 Interval history: No chest pain at this time Review of Systems Review of Systems: All systems reviewed & are unremarkable except as noted in HPI and below Constitutional: Constitutional: Reports as per HPI and Reports no additional constitutional complaints Eyes: Eyes: Reports as per HPI and Reports no additional eye complaints ENT: Reports system reviewed and no additional complaints, except as documented and Reports Normal hearing present Cardiovascular: Cardiovascular: Reports no additional cardiovascular complaints Respiratory: Respiratory: Reports no additional respiratory complaints and Reports no additional respiratory complaints Gastrointestinal: Gastrointestinal: Reports as per HPI and Reports no additional gastrointestinal complaints Musculoskeletal: Musculoskeletal: Reports no additional musculoskeletal complaints Integumentary/Breasts: Skin/Breast: Reports system reviewed and no additional complaints, except as docu and Reports as per HPI Neurologic: Reports system reviewed and no additional complaints, except as documented, Reports as per HPI and Reports Normal hearing present Psychiatric: Psychiatric: Reports no additional psychiatric complaints and Reports as per HPI Endocrine: Endocrine: Reports no additional endocrine complaints Hematologic/Lymphatic: Hematologic/Lymphatic: Reports no additional hematologic/lymphatic complaints Allergic/Immunologic: Allergic/Immunologic: Reports no additional allergic/immunologic complaints Exam Const: General: cooperative, healthy appearing, comfortable, no acute distress, well developed, awake, Physically active, average body habitus and well nourished Nutritional Appearance: average body habitus and well nourished Orientation/consciousness: oriented to person, oriented to place, oriented to time and patient oriented x3 Limitations: no limitations HENMT: Head: normal to inspection, No palpable skull fracture present, normocephalic and atraumatic Ears: hearing grossly normal bilaterally and external ears normal Face/Nose/Sinus: Normal external nose present and Normal nares present Eyes: General: appearance normal, both eyes and all related structures Alignment and Position: alignment normal Periorbital: periorbital findings normal Eyelids: eyelids normal Sclera: sclerae normal Pupils: Equal, round and reactive pupils present EOM: EOMs intact bilaterally Neck: Neck: normal visual inspection, full ROM, no lymphadenopathy, trachea midline and supple Chest: Chest palpation & inspection: normal inspection of the chest Resp: Effort & Inspection: normal respiratory effort Auscultation: clear to auscultation bilaterally Cardio: Palpation: normal PMI Rate: regular rate Rhythm: regular rhythm Heart sounds: S1 normal heart so
--- NOTE | 2022-12-19 13:32 | PC.NURSE ---
1205- to CT dept , US and NM dept for test via w/c accompanied by staff
--- NOTE | 2022-12-19 13:42 | PM.DS ---
DS: Admitting Diagnosis Discharge Date 12/19/22 Admitting Diagnosis chest pain DS: Discharge Diagnosis Discharge Diagnosis (1) Chest pain: Code(s): R07.9 - Chest pain, unspecified Status: Acute (2) Hypokalemia: Code(s): E87.6 - Hypokalemia Status: Acute DS: Summary Hospital Course Hospital Course: This is a 47-year-old female patient who has a history of chronic back pain.? The patient stated recently she developed some edema to her lower extremities and her primary care doctor started her on a diuretic.? The patient came to the emergency room to be evaluated for sudden onset of midsternal chest pain 2 hours prior to coming to the emergency room while eating.? She stated that the pain went down her left arm as well.? She denies any history of heart disease or PE.? Her mother gave her 325 mg of aspirin 1 time at home.? Her potassium was initially 2.6 and was replaced with oral potassium.? All 3 troponins have been nonreactive.? EKG was read as sinus rhythm,? Left ventricular hypertrophy.? cardiology was consulted. CTA chest is normal. Echo is normal. patient is undergoing Treadmill Stress test & if that is normal, we will discharge her home. Time Spent with Patient Time attestation: Total time spent providing and/or coordinating discharge services: Exam Const: General: cooperative, healthy appearing, comfortable, no acute distress, well developed, awake, Physically active, average body habitus and well nourished Nutritional Appearance: average body habitus and well nourished Orientation/consciousness: oriented to person, oriented to place, oriented to time and patient oriented x3 Limitations: no limitations HENMT: Head: normal to inspection, No palpable skull fracture present, normocephalic and atraumatic Ears: hearing grossly normal bilaterally and external ears normal Face/Nose/Sinus: Normal external nose present and Normal nares present Eyes: General: appearance normal, both eyes and all related structures Alignment and Position: alignment normal Periorbital: periorbital findings normal Eyelids: eyelids normal Sclera: sclerae normal Pupils: Equal, round and reactive pupils present EOM: EOMs intact bilaterally Neck: Neck: normal visual inspection, full ROM, no lymphadenopathy, trachea midline and supple Chest: Chest palpation & inspection: normal inspection of the chest Resp: Effort & Inspection: normal respiratory effort Auscultation: clear to auscultation bilaterally Cardio: Palpation: normal PMI Rate: regular rate Rhythm: regular rhythm Heart sounds: S1 normal heart sound present and S2 normal heart sound present GI: Inspection: normal to inspection Auscultation: normal bowel sounds Rectal Exam: deferred Back/Spine/Pelvis: Cervical Spine: cervical ROM normal Skin: General skin exam: normal color Lesions: no lesions Rashes: no rashes Trauma: no lacerations or abrasions Wounds: no wounds Hair: normal Nails: normal Neuro: General: oriented to person, oriented to place, oriented to time and patient oriented x3 Cranial nerves: Yes Equal, round and reactive pupils present and Yes Normal hearing present Cognition (Neuro): normal cognition Speech: normal speech Gait exam (Neuro): Normal gait present Motor exam (neuro): 5/5 motor strength present throughout Sensory Exam: normal sensation Extrem: General: normal to inspection Right upper extremity: normal to inspection and shoulder/upper arm Left upper extremity: normal to inspection and shoulder/upper arm Right lower extremity: normal to inspection Left lower extremity: normal to inspection Psych: Appearance: grossly normal Mental Status: mental status grossly normal Speech and movement: Normal speech and movement present Affect: normal affect Attitude: cooperative Thought process: Normal thought process present Thought content: Yes Normal thought content present Insight: Good insight present (Psych) Judgement: Good judgement prese
[2022-12-19] MEDS: POTASSIUM CHLORIDE 20 MEQ TABLET 40 MEQ PO (16:03)
== END 2022-12-19 17:18 | disposition home or self-care (01) ==
LOC: ANHED 18:54 → ANHIMU 20:48
PROVIDERS: Emergency Medicine; Nurse Practitioner; Admitting Provider Hospitalist; Emergency Provider General Practice; PCP Nurse Practitioner Family; Visit Provider Hospitalist
DX: R07.9 Chest pain, unspecified (principal); E87.6 Hypokalemia; G89.29 Other chronic pain; M54.9 Dorsalgia, unspecified; R06.09 Other forms of dyspnea; I07.1 Rheumatic tricuspid insufficiency; M25.511 Pain in right shoulder; R94.31 Abnormal electrocardiogram [ECG] [EKG]; K44.9 Diaphragmatic hernia without obstruction or gangrene; R60.0 Localized edema; I42.2 Other hypertrophic cardiomyopathy; F41.9 Anxiety disorder, unspecified; F32.A Depression, unspecified; Z79.890 Hormone replacement therapy; Z79.891 Long term (current) use of opiate analgesic; Z79.899 Other long term (current) drug therapy
CPT/HCPCS: 36415; 36600; 71046; 71275; 78452; 80048; 80053; 82375; 82805; 83050; 83605; 83690; 83735; 84443; 84484; 85025; 85380; 85610; 85730; 93005; 93017; 93306; 93970; 96361; 96372; 96374; 99285; A9270; A9502; G0378; J1650; J1885; J2785; J3480; J7040; J7120; Q9967

== ENCOUNTER 2023-12-17 09:57 | Emergency (ER) | payer OTHER, MEDICARE, MEDICAID, SELFPAY ==
--- NOTE | ~2023-12-17 | XR_ITS ---
Left Shoulder Technique: AP and scapular Y views were obtained. Clinical History: Pain Findings: No fracture or dislocation is seen. Osseous alignment is anatomic. The glenohumeral and acr omioclavicular joints demonstrate mild degenerative change. Soft tissues are unremarkable. Impression: Mild degenerative changes, as above. Reviewed, dictated and finalized at location . Impression: Mild degenerative changes, as above.
--- NOTE | ~2023-12-17 | XR_ITS ---
XR cervical spine 4-5V 12/17/2023 12:03 Indication: Neck pain after fall Procedure: 5 views cervical spine Comparison: No prior studies for comparison. Findings: Normal cervical alignment. Mild disc narrowing at C4-5 and C5-6. Mild multilevel uncinate a nd facet hypertrophy. Lung apices are normal. No fracture or traumatic malalignment. Odontoid process is normal. Lateral masses normally aligned. Impression: 1: No acute abnormality of the cervical spine. Reviewed, dictated and finalized at location B. Impression: 1: No acute abnormality of the cervical spine.
--- NOTE | ~2023-12-17 | XR_ITS ---
Left wrist Technique: PA, oblique, lateral, and ulnar deviation views were obtained. Clinical History: Pain Findings: No acute fracture or dislocation is seen. Osseous alignment is anatomic. There is mild to m oderate degenerative change of the first CMC joint. Soft tissues are unremarkable. Impression: Mild to moderate degenerative change of the first CMC joint. Reviewed, dictated and finalized at location . Impression: Mild to moderate degenerative change of the first CMC joint.
--- NOTE | ~2023-12-17 | XR_ITS ---
Left ankle Technique: AP, oblique, and lateral views were obtained. Clinical History: Pain Findings: No acute fracture or dislocation is seen. Osseous alignment is anatomic. Ankle mortise and other visualized joint spaces are preserved. Soft tissues are otherwise unremarkable. Impression: Unremarkable left ankle. Reviewed, dictated and finalized at location . Impression: Unremarkable left ankle.
[2023-12-17 10:30] VITALS: BP 111/63; PULSE 72; RESP 16; TEMP 36.6; O2SAT 100
[2023-12-17] MEDS: HYDROcodone/acetaminophen (*CRX) 5-325 MG TABLET 1 TAB PO (11:31)
--- NOTE | 2023-12-17 12:08 | ED.FALL ---
HPI - Fall General Chief Complaint: Fall Stated Complaint: fall Time Seen by Provider: 12/17/23 10:46 Source: patient Mode of arrival: ambulatory Limitations: no limitations History of Present Illness HPI Narrative: Patient is a 48-year-old female who presents the ED with report of a fall. Patient reports she tripped over a rug prior to arrival and fell forward, landing on her knees, catching herself with her left arm. Denied any prodromal symptoms prior to the fall. Denied dizziness or lightheadedness. Denies head injury or LOC. Complains of pain to left shoulder, left wrist/thumb, left ankle. Denies knee pain. Denies numbness. Denies significant neck or back pain. Related Data Home Medications Medication Instructions Recorded Confirmed hydrocodone 10 mg-acetaminophen 1 tablet PO Q8H PRN Moderate Pain 11/17/19 12/18/22 325 mg tablet ([place]) (Scale Score 5-6) pregabalin 100 mg capsule (Lyrica) 100 mg PO BID 11/17/19 12/18/22 ergocalciferol (vitamin D2) 1,250 1,250 mcg PO WEEKLY 12/18/22 12/18/22 mcg (50,000 unit) capsule hydrochlorothiazide 25 mg tablet 25 mg PO DAILY 12/18/22 12/18/22 methocarbamol 750 mg tablet 750 mg PO BID PRN Spasms 12/18/22 12/18/22 topiramate 50 mg tablet 50 mg PO DAILY 12/18/22 12/18/22 Allergies Allergy/AdvReac Type Severity Reaction Status Date / Time ciprofloxacin AdvReac Severe KIDNEY Verified 12/17/23 09:58 FAILURE Review of Systems Review of Systems: CONSTITUTIONAL: Denies fever, chills, or sweats. GASTROINTESTINAL: Denies abdominal pain, nausea, vomiting MUSCULOSKELETAL: See HPI NEUROLOGIC: Denies headache, dizziness, numbness, or weakness. All systems reviewed & are unremarkable except as noted in HPI and below PMFSH Past Medical History Medical History Anxiety Chest pain Chronic back pain Depression History of postoperative complication of surgical procedure Knee injury Left knee pain On [facility]ci drug therapy Rectal vaginal fistula Repair Swelling of lymph node Urinary frequency Surgical History Surgical History H/O: hysterectomy History of tonsillectomy and adenoidectomy Hx of carpal tunnel repair Bilateral release S/P laparotomy Family History Family History Mother Diabetes mellitus Sibling Thyroid cancer Grandparent Diabetes mellitus Grandparent Cancer Social History Social History Social History: The patient has 3 children. Disabled. She lives with her significant other. Code status full code Smoking status: Never smoker Alcohol intake: never Substance use: never Lack of Transportation: No Lack of Food: Never True Current Housing: I Have Housing Concerned About Future Housing: No Difficulty Paying Gas/Electric Bills: No Difficulty Paying for Meds: No Currently Unemployed: No Education: Trade/Vocational Certificate Difficulty w/ Childcare or Family Care: No Living arrangements: with family Gender identity (if verbalized by the patient): Female Spiritual care concerns: No Exam Narrative: GENERAL: Well appearing, morbidly obese with BMI 40.6, non-toxic, in no acute distress. HEAD: Normocephalic, atraumatic. RESPIRATORY: Airway patent, respirations nonlabored. Clear to auscultation bilaterally, no rales, rhonchi, wheezing. CARDIOVASCULAR: Regular rate and rhythm. Peripheral pulses intact. MUSCULOSKELETAL: Moves all extremities. No gross deformities. Mild limited range of motion of left shoulder due to pain. Tenderness to palpation over anterior/lateral left shoulder joint, no appreciable swelling. No significant midline cervical, thoracic, lumbar spinal tenderness. No palpable bony deformities or step-offs. Sensation intact. No significant tenderness thr
== END 2023-12-17 13:05 | disposition home or self-care (01) ==
PROVIDERS: Emergency Provider Physician Assistant; PCP Nurse Practitioner Family
DX: S46.912A Strain of unspecified muscle, fascia and tendon at shoulder and upper arm level, left arm, initial encounter (principal); S69.92XA Unspecified injury of left wrist, hand and finger(s), initial encounter; S99.912A Unspecified injury of left ankle, initial encounter; Z90.710 Acquired absence of both cervix and uterus; W18.09XA Striking against other object with subsequent fall, initial encounter
CPT/HCPCS: 72050; 73030; 73110; 73610; 99284; A9270